=== PATIENT | male | born 1985 | race Caucasian/White ===

== ENCOUNTER 2017-09-08 01:40 | Emergency (ER) | payer MEDICAID ==
[~2017-09-08] VITALS: Ht 190.5 cm; Wt 90.7 kg
[~2017-09-08 01:40] MED LIST: IBUP-1957 PO
[2017-09-08] MEDS: ACETAMINOPHEN ES 500 MG TABLET PO ONE (02:25)
--- NOTE | 2017-09-08 02:27 | NUR ---
Patient discharged to home in stable conditon. Written and verbal after care instructions given. Patient verbalizes understanding of instructions.
[2017-09-08] MEDS ORDERED: ACETAMINOPHEN ES 500 MG TABLET ONE (02:31)
== END 2017-09-08 02:29 | disposition home or self-care (01) ==
LOC: ER 01:40
DX: K04.7 Periapical abscess without sinus (principal); F17.200 Nicotine dependence, unspecified, uncomplicated; Z88.6 Allergy status to analgesic agent
CPT/HCPCS: A4663; A9150

== ENCOUNTER 2017-11-20 03:02 | Emergency (ER) | payer MEDICAID ==
[~2017-11-20] VITALS: Ht 190.5 cm; Wt 86.2 kg
[2017-11-20] MEDS ORDERED: CEPHALEXIN MONOHYDRATE 500 MG CAPSULE ONE (03:40)
[2017-11-20] MEDS ORDERED: SULFAMETH/TRIMETH 800/160 MG TABLET ONE (03:40)
[2017-11-20] MEDS ORDERED: SULFAMETH/TRIMETH 800/160 MG TABLET PO ONE (03:45)
[2017-11-20] MEDS ORDERED: CEPHALEXIN MONOHYDRATE 500 MG CAPSULE PO ONE (03:45)
--- NOTE | 2017-11-20 03:50 | NUR ---
Patient discharged to home in stable conditon. Written and verbal after care instructions given. Patient verbalizes understanding of instructions. Patient afebrile upon discharge. Patient able to ambulate unassisted with steady gait. Patient left with all personal belongings.
[2017-11-20 03:54] VITALS: BP 128/82
== END 2017-11-20 03:50 | disposition home or self-care (01) ==
LOC: ER 03:07
DX: L03.115 Cellulitis of right lower limb (principal); L03.116 Cellulitis of left lower limb; F15.10 Other stimulant abuse, uncomplicated; F11.10 Opioid abuse, uncomplicated; F17.210 Nicotine dependence, cigarettes, uncomplicated; Z88.5 Allergy status to narcotic agent; Z79.1 Long term (current) use of non-steroidal anti-inflammatories (NSAID)
CPT/HCPCS: A4663

== ENCOUNTER 2019-09-15 18:50 | Emergency (ER) | payer MEDICAID ==
[~2019-09-15] VITALS: Ht 190.5 cm; Wt 99.8 kg
[2019-09-15] MEDS ORDERED: VANCOMYCIN IV 1,000 MG in IV DEXTROSE 5% 250 ML IV ONE (19:30)
[2019-09-15] MEDS ORDERED: IV NORMAL SALINE 1000 ML BAG IV ONE (19:30)
[2019-09-15] MEDS ORDERED: PIPERACILLIN SODIUM/TAZOBACTAM 3.375 G in IV DEXTROSE 5% 50 ML IV ONE (19:30)
[2019-09-15 19:55] LABS: BASOPHILS # (AUTO) 0.1 K/uL (0.0-8.0); BASOPHILS % (AUTO) 0.6 % (0.0-2.0); EOSINOPHILS # (AUTO) 0.2 K/uL (0.0-0.7); EOSINOPHILS % (AUTO) 1.8 % (0.0-7.0); HEMATOCRIT 25.7 % (36.7-47.1); HEMOGLOBIN 8.3 g/dL (12.5-16.3); LYMPHOCYTES % (AUTO) 22.3 % (20.5-51.5); MEAN CORPUSCULAR HEMOGLOBIN 24.1 uug (23.8-33.4); MEAN CORPUSCULAR HGB CONC 32 g/dL (32.5-36.3); MEAN CORPUSCULAR VOLUME 74.2 fL (73.0-96.2); MONOCYTES # (AUTO) 0.8 K/uL (2.0-10.0); MONOCYTES % (AUTO) 9.2 % (0.0-11.0); NEUTROPHILS # (AUTO) 5.8 K/uL (1.8-8.9); NEUTROPHILS % (AUTO) 66.1 % (38.5-71.5); PLATELET COUNT (AUTO) 368 K/uL (152-348); RED BLOOD CELL COUNT(AUTO) 3.47 MIL/uL (4.06-5.63); WHITE BLOOD COUNT (AUTO) 8.8 K/uL (3.6-10.2)
[2019-09-15 19:57] LABS: CARBON DIOXIDE 32 mmol/L (21-32); CHLORIDE 101 mmol/L (98-107); CREATININE 0.7 mg/dL (0.6-1.3); GLUCOSE 103 mg/dL (74-106); POTASSIUM 4.4 mmol/L (3.5-5.1); UREA NITROGEN, BLOOD 15 mg/dL (7-18)
[2019-09-15 20:03] LABS: ALANINE AMINOTRANSFERASE 69 U/L (16-63); ALKALINE PHOSPHATASE 73 U/L (50-136); ASPARTATE AMINOTRANSFERASE 57 U/L (15-37); BILIRUBIN,DIRECT 0.1 mg/dL (0.0-0.2); BILIRUBIN,TOTAL 0.3 mg/dL (0.2-1.0); TOTAL PROTEIN, SERUM 9.8 g/dL (6.4-8.2)
[2019-09-15 20:08] LABS: ETHANOL < 3 MG/DL (0-0)
[2019-09-15] MEDS ORDERED: VANCOMYCIN IV 0 ML ONE (20:50)
[2019-09-15] MEDS ORDERED: PIPERACILLIN/TAZOBACTAM/D5W 50 ML IV ONE (20:50)
[2019-09-15 20:54] LABS: *AMPHETAMINE, URINE POSITIVE (NEGATIVE); *BARBITURATE, URINE NEGATIVE (NEGATIVE); *CANNABINOID, URINE NEGATIVE (NEGATIVE); *COCCAINE, URINE NEGATIVE (NEGATIVE); *OPIATE, URINE POSITIVE (NEGATIVE); *PHENCYCLIDINE SCREEN,URINE NEGATIVE (NEGATIVE)
[2019-09-15] MEDS ORDERED: HYDROMORPHONE 1 MG/1 ML DISP.SYRIN IM ONE (21:45)
[2019-09-15] MEDS ORDERED: CEFTRIAXONE 1 G VIAL IM ONE (21:45)
[2019-09-15] MEDS ORDERED: SULFAMETH/TRIMETH 800/160 MG TABLET PO ONE (21:45)
[2019-09-15] MEDS ORDERED: HYDROMORPHONE 1 MG/1 ML DISP.SYRIN ONE (22:05)
[2019-09-15] MEDS ORDERED: CEFTRIAXONE 1 G VIAL ONE (22:05)
[2019-09-15] MEDS ORDERED: SULFAMETH/TRIMETH 800/160 MG TABLET ONE (22:05)
--- NOTE | 2019-09-15 22:15 | NUR ---
Patient discharged to home in stable conditon. Written and verbal after care instructions given. Patient verbalizes understanding of instructions. patient ambulating with steady gait. girlfriend at bedside. patient and girlfriend to take uber home
--- NOTE | 2019-09-15 22:15 | NUR ---
Patient does not wish to proceed with medical care recommended by Dr. Dillard. Patient given information related to possible complications, up to and including , which could occur as a result of leaving the hospital at this time. Patient verbalizes understanding of risks involved due to leaving against medical advice. Patient has signed AMA form.
[2019-09-15 23:05] VITALS: BP 124/76
== END 2019-09-15 22:15 | disposition left against medical advice (07) ==
LOC: ER 18:51
DX: S09.90XA Unspecified injury of head, initial encounter (principal); H60.92 Unspecified otitis externa, left ear; M65.88 Other synovitis and tenosynovitis, other site; F11.10 Opioid abuse, uncomplicated; F15.10 Other stimulant abuse, uncomplicated; F17.200 Nicotine dependence, unspecified, uncomplicated; Z79.1 Long term (current) use of non-steroidal anti-inflammatories (NSAID); X58.XXXA Exposure to other specified factors, initial encounter; Y93.89 Activity, other specified; Y92.89 Other specified places as the place of occurrence of the external cause; Y99.8 Other external cause status
CPT/HCPCS: 36415; 70450; 73130; 80048; 80076; 80307; 85025; 96372 ×2; 99285; G0480; J0696; J1170; A4663; J2543; J3370; J7030

== ENCOUNTER 2022-03-11 00:55 | Emergency (ER) | payer SELFPAY ==
--- NOTE | 2022-03-11 01:23 | NUR ---
Patient was called to be triaged but was not present in the waiting room or outside of ER.
--- NOTE | 2022-03-11 01:45 | NUR ---
Patient was called to be triaged but was not present in the waiting room or outside of ER.
--- NOTE | 2022-03-11 02:10 | NUR ---
Patient was called to be triaged but was not present. PATIENT WAS NOT TRIAGED OR SEEN BY [facility].
== END 2022-03-11 02:10 | disposition left against medical advice (07) ==
LOC: ER 01:03
DX: Z53.21 Procedure and treatment not carried out due to patient leaving prior to being seen by health care provider (principal)